=== PATIENT | male | born 1980 | race Caucasian/White ===

== ENCOUNTER 2017-12-29 17:42 | Emergency (ER) | payer OTHER ==
[2017-12-29 17:53] VITALS: TEMP 98.4; BMI 36.2
--- NOTE | 2017-12-29 17:57 | PDOC ---
History of Present Illness - General History Source: Patient Exam Limitations: No Limitations - History of Present Illness Initial Comments: 12/29/17 18:10 The patient is a 37 year old male with no significant PMH who presents to the emergency department with left upper quadrant abdominal pain for the past two days. Patient states the abdominal pain radiates to behind the left shoulder blade. Patient describes the abdominal pain as 4/10 in severity, pressure and burning in nature, and constant. Patient denies any alleviating or exacerbating factors. Patient reports he went to the urgent care after the onset of his abdominal pain. The urgent care did a chest xray that was normal and attributed it to gas. Patient was given Maalox but reports minimal improvement and noticed mild swelling prompting him to the ER. Patient denies any abdominal surgeries in the past. Bowel movement was half an hour ago. The patient denies chest pain, shortness of breath, headache and dizziness. Denies fever, chills, nausea, vomit, diarrhea and constipation. Denies dysuria, frequency, urgency and hematuria. Allergies: NKA Past surgical history: None reported. Social history: No reported alcohol, drug or cigarette use. <Carol Pop - Last Filed: 12/29/17 18:10> <Keara Hope - Last Filed: 12/31/17 08:31> - General Chief Complaint: Pain Stated Complaint: ABDOMINAL PAIN Time Seen by Provider: 12/29/17 17:57 Past History <Carol Pop - Last Filed: 12/29/17 18:10> - Past Medical History COPD: No - Suicide/Smoking/Psychosocial Hx Smoking History: Never smoked Have you smoked in the past 12 months: No Information on smoking cessation initiated: No Hx Alcohol Use: (occasional) <Keara Hope - Last Filed: 12/31/17 08:31> - Past Medical History Allergies/Adverse Reactions: Allergies Allergy/AdvReac Type Severity Reaction Status Date / Time No Known Allergies Allergy Unverified 12/29/17 17:42 Home Medications: Ambulatory Orders NK [No Known Home Medication] 12/29/17 Review of Systems - Review of Systems Able to Perform ROS?: Yes Comments:: 12/29/17 18:11 ADULT ROS GENERAL/CONSTITUTIONAL: No fever or chills. No weakness. HEAD, EYES, EARS, NOSE AND THROAT: No change in vision. No ear pain or discharge. No sore throat. CARDIOVASCULAR: No chest pain or shortness of breath. RESPIRATORY: No cough, wheezing, or hemoptysis. GASTROINTESTINAL: No nausea, vomiting, diarrhea or constipation. (+) Abdominal pain. GENITOURINARY: No dysuria, frequency, or change in urination. MUSCULOSKELETAL: No joint or muscle swelling or pain. No neck or back pain. SKIN: No rash NEUROLOGIC: No headache, vertigo, loss of consciousness, or change in strength/ sensation. ENDOCRINE: No increased thirst. No abnormal weight change. HEMATOLOGIC/LYMPHATIC: No anemia, easy bleeding, or history of blood clots. ALLERGIC/IMMUNOLOGIC: No hives or skin allergy. <Carol Pop - Last Filed: 12/29/17 18:10> *Physical Exam - Vital Signs Last Vital Signs Temp Pulse Resp BP Pulse Ox 98.4 F 108 H 20 157/106 H 99 12/29/17 17:45 12/29/17 17:45 12/29/17 17:45 12/29/17 17:45 12/29/17 17:45 - Physical Exam Comments: 12/29/17 18:12 ADULT EXAM GENERAL: Awake, alert, and fully oriented, in no acute distress HEAD: No signs of trauma EYES: PERRLA, EOMI, sclera anicteric, conjunctiva clear ENT: Auricles normal inspection, hearing grossly normal, nares patent, oropharynx clear without exudates. Moist mucosa NECK: Normal ROM, supple, no lymphadenopathy, JVD, or masses LUNGS: Breath sounds equal, clear to auscultation bilaterally. No wheezes, and no crackles HEART: Regular rate and rhythm, normal S1 and S2, no murmurs, rubs or gallops ABDOMEN: Soft, nontender, normoactive bowel sounds. No guarding, no rebound. No masses EXTREMITIES: Normal range of motion, no edema. No clubbing or cyanosis. No cords, erythema, or tenderness NEUROLOGICAL: Cranial nerves II through XII grossly intact. Normal speech, normal gait SKIN: Warm, Dry, normal turgor, no rashes or lesions noted. <Carol Pop - Last Filed: 12/29/17 18:10> - Vital Signs Last Vital Signs Temp Pulse Resp BP Pulse Ox 98.4 F 108 H 20 157/106 H 99 12/29/17 17:45 12/29/17 17:45 12/29/17 17:45 12/29/17 17:45 12/29/17 17:45 <Keara Hope - Last Filed: 12/31/17 08:31> ED Treatment Course - LABORATORY CBC & Chemistry Diagram: 12/29/17 18:20 12/29/17 18:20 <Keara Hope - Last Filed: 12/31/17 08:31> Medical Decision Making - Medical Decision Making 12/31/17 07:38 Pt presents to the ED complaining of a three day history of LUQ pain, without nausea vomiting or fever. Patient has mild tenderness at his left costal margin , but no abdominal tenderness. Will check labs to rule out intraabdominal pathologies such as pancreatitis, likely discharge home if negative. <Keara Hope - Last Filed: 12/31/17 08:31> *DC/Admit/Observation/Transfer - Attestations Scribe Attestion: 12/29/17 18:12 Documentation prepared by Carol Pop, acting as program medical director for Keara Hope MD. <Carol Pop - Last Filed: 12/29/17 18:10> - Discharge Dispostion Decision to Admit order: No <Keara Hope - Last Filed: 12/31/17 08:31> Diagnosis at time of Disposition: Abdominal wall pain - Discharge Dispostion Disposition: HOME Condition at time of disposition: Good - Patient Instructions Additional Instructions: Motrin and heating pads as needed for pain. Please followup with your doctor to recheck liver tests
[2017-12-29 18:50] LABS: BASO % 0.5 % (0-2.0); EOS % 1.1 % (0-4.5); HEMATOCRIT 40.5 % (35.4-49); HEMOGLOBIN 13.7 GM/dl (11.7-16.9); LYMPH % 12.7 % (8-40); MCH 29.8 pg (25.7-33.7); MCHC 33.8 g/dl (32.0-35.9); MEAN CELL VOLUME 88.3 fl (80-96); MEAN PLT VOLUME 7.1 fl (7.5-11.1); MONO % 5.3 % (3.8-10.2); NEUT % 80.4 % (42.8-82.8); PLATELET COUNT 249 K/MM3 (134-434); RBC 4.58 M/mm3 (4.00-5.60); RDW 14.4 % (11.9-15.9); WHITE BLOOD COUNT 8.9 K/mm3 (4.0-10.8)
[2017-12-29 18:58] LABS: ALBUMIN 4.3 g/dl (3.5-5.0); ALK PHOS 83 U/L (32-92); ANION GAP 8 MMOL/L (8-16); BILIRUBIN,TOTAL 1.3 mg/dl (0.2-1.0); BLOOD UREA NITROGEN 16 mg/dl (7-18); CALCIUM 8.7 mg/dl (8.4-10.2); CHLORIDE 102 mmol/L (98-107); CO2 24 mmol/L (22-28); CREATININE 0.9 mg/dl (0.6-1.3); GLUCOSE,RANDOM 145 mg/dl (74-106); SGOT/AST 46 U/L (10-42); SGPT/ALT 46 U/L (10-40); SODIUM 134 mmol/L (136-145); TOT PROT 7.2 g/dl (6.4-8.3)
[2017-12-29 19:00] LABS: POTASSIUM 4.9 mmol/L (3.5-5.1)
--- NOTE | 2017-12-29 19:59 | PDOC ---
History of Present Illness - General Chief Complaint: Pain Stated Complaint: ABDOMINAL PAIN Time Seen by Provider: 12/29/17 17:57 Past History - Past Medical History Allergies/Adverse Reactions: Allergies Allergy/AdvReac Type Severity Reaction Status Date / Time No Known Allergies Allergy Unverified 12/29/17 17:42 Home Medications: Ambulatory Orders NK [No Known Home Medication] 12/29/17 COPD: No - Suicide/Smoking/Psychosocial Hx Smoking History: Never smoked Have you smoked in the past 12 months: No Information on smoking cessation initiated: No Hx Alcohol Use: (occasional) *Physical Exam - Vital Signs Last Vital Signs Temp Pulse Resp BP Pulse Ox 98.4 F 108 H 20 157/106 H 99 12/29/17 17:45 12/29/17 17:45 12/29/17 17:45 12/29/17 17:45 12/29/17 17:45 ED Treatment Course - LABORATORY CBC & Chemistry Diagram: 12/29/17 18:20 12/29/17 18:20 - ADDITIONAL ORDERS Additional order review: Laboratory Results 12/29/17 18:20 Sodium 134 L Potassium 4.9 Chloride 102 Carbon Dioxide 24 Anion Gap 8 BUN 16 Creatinine 0.9 Creat Clearance w eGFR > 60 Random Glucose 145 H D Calcium 8.7 Total Bilirubin 1.3 H AST 46 H D ALT 46 H Alkaline Phosphatase 83 Total Protein 7.2 Albumin 4.3 12/29/17 18:20 RBC 4.58 MCV 88.3 MCHC 33.8 RDW 14.4 MPV 7.1 L Neutrophils % 80.4 Lymphocytes % 12.7 Monocytes % 5.3 Eosinophils % 1.1 Basophils % 0.5 Medical Decision Making - Medical Decision Making 12/29/17 19:56 tenderness localized to abd wall. i do not appreciate a hernia. LFTs noted--no apparent risk factors patient will fu with PCP for LFT check in 3 months *DC/Admit/Observation/Transfer Diagnosis at time of Disposition: Abdominal wall pain - Discharge Dispostion Disposition: HOME Condition at time of disposition: Stable - Referrals - Patient Instructions Additional Instructions: Motrin and heating pads as needed for pain. Please followup with your doctor to recheck liver tests - Post Discharge Activity
[2017-12-29 20:10] VITALS: BP 138/95; PULSE 69
[2017-12-29 20:15] LABS: LIPASE 161 U/L (73-393)
== END 2017-12-29 20:10 | disposition home or self-care (01) ==
LOC: FER 17:42
DX: R10.9 Unspecified abdominal pain (principal)
CPT/HCPCS: 36415; 80053; 83690; 85025; 99283-25